=== PATIENT | female | born 1935 | race Caucasian/White ===

== ENCOUNTER 2022-06-26 18:26 | Emergency (ER) | payer MEDICARE, OTHER ==
[~2022-06-26] VITALS: Ht 154.9 cm; Wt 89.8 kg
[~2022-06-26 18:26] MED LIST: CINNAMON500 MG PO; GARLIQUE5000 MCG PO; LEVOTHYROXINE75 MCG PO; LISINOPRIL2.5 MG NG; MACROBID 100 M100 MG PO; VALERIAN ROOT100 MG PO; VITAMIN D32000 UNIT PO
[2022-06-26] MEDS ORDERED: CEPHALEXIN500 M1 PO (20:00)
== END 2022-06-26 20:32 | disposition home or self-care (01) ==
LOC: ED 18:26
DX: S01.102A Unspecified open wound of left eyelid and periocular area, initial encounter (principal); I10 Essential (primary) hypertension; E03.9 Hypothyroidism, unspecified; Z79.890 Hormone replacement therapy; W27.2XXA Contact with scissors, initial encounter
CPT/HCPCS: 90715; A9270